=== PATIENT | female | born 2005 | race Hispanic/Latino ===

== ENCOUNTER 2023-10-13 06:59 | Inpatient (IN) | payer OTHER ==
[~2023-10-13] VITALS: Ht 165.1 cm; Wt 75.0 kg
[2023-10-13 08:05] LABS: BASO # 0.1 10^3/uL (0.0-0.2); BASO % 0.8 % (0.0-1.0); EOS # 0.3 10^3/uL (0.0-0.5); EOS % 5.6 % (0.0-3.0); HEMATOCRIT 39.4 % (36.0-47.0); HEMOGLOBIN 13.1 g/dl (12.0-15.5); LYMPH # 2.1 10^3/uL (1.5-5.0); LYMPH % 33.9 % (24.0-44.0); MEAN CORPUSCULAR HEMOGLOBIN 29.8 pg (27.0-33.0); MEAN CORPUSCULAR HGB CONC 33.2 g/dl (32.0-36.5); MEAN CORPUSCULAR VOLUME 89.7 fl (80.0-96.0); MONO # 0.3 10^3/uL (0.0-0.8); MONO % 4.8 % (2.0-8.0); NEUTROPHILS # 3.3 10^3/uL (1.5-8.5); NEUTROPHILS % 54.7 % (36.0-66.0); PLATELET COUNT, AUTOMATED 284 10^3/uL (150-450); RED BLOOD COUNT 4.39 10^6/uL (4.00-5.40); WHITE BLOOD COUNT 6.1 10^3/uL (4.0-10.0)
[2023-10-13 08:16] LABS: ETHYL ALCOHOL (ETHANOL) 0.004 % (0.000-0.010)
[2023-10-13 08:17] LABS: ALBUMIN 4.1 G/DL (3.2-5.2); ALKALINE PHOSPHATASE 101 U/L (46-116); ALT/SGPT 21 U/L (7.0-40); AST/SGOT 14 U/L (<34); BILIRUBIN,DIRECT 0.2 MG/DL (<0.4); BILIRUBIN,TOTAL 0.7 MG/DL (0.3-1.2); BLOOD UREA NITROGEN 8 MG/DL (9-23); CALCIUM LEVEL 8.8 MG/DL (8.5-10.1); CARBON DIOXIDE LEVEL 25 MMOL/L (20-31); CHLORIDE LEVEL 108 MMOL/L (98-107); CPK CREATINE PHOSPHOKINASE 71 U/L (34-145); CREATININE FOR GFR 0.54 MG/DL (0.55-1.30); GLUCOSE, FASTING 104 MG/DL (60-100); POTASSIUM SERUM 3.6 MMOL/L (3.5-5.1); SALICYLATE LEVEL < 3.0 MG/DL (<30); SODIUM LEVEL 142 MMOL/L (136-145); TOTAL PROTEIN 7.6 G/DL (5.7-8.2)
[2023-10-13 08:20] LABS: THYROID STIMULATING HORMONE 2.633 uIU/ML (0.48-4.17)
[2023-10-13 08:39] LABS: HCG, SERUM QUALITATIVE NEGATIVE (NEGATIVE)
[2023-10-13 08:42] LABS: AMPHETAMINES LEVEL URINE NEGATIVE (NEGATIVE); BARBITURATES URINE NEGATIVE (NEGATIVE)
[2023-10-13 08:43] LABS: BENZODIAZEPINES URINE NEGATIVE (NEGATIVE); CANNABINOIDS URINE NEGATIVE (NEGATIVE); COCAINE METABOLITE URINE NEGATIVE (NEGATIVE); METHADONE URINE NEGATIVE (NEGATIVE); OPIATES URINE NEGATIVE (NEGATIVE); PHENCYCLIDINE URINE NEGATIVE (NEGATIVE)
[2023-10-13] MEDS ORDERED: IBUPROFEN 400MG TAB PO PRN (14:20)
[2023-10-13] MEDS ORDERED: diphenhydrAMINE 25MG CAP PO PRN (14:20)
[2023-10-13] MEDS ORDERED: MOM 30ML SUSPENSION UDC PO PRN (14:20)
[2023-10-13] MEDS ORDERED: traZODone 50 MG TAB PO PRN (14:20)
[2023-10-13] MEDS ORDERED: MAALOX 30 ML SUSP *UDC PO PRN (14:20)
[2023-10-13] MEDS ORDERED: ACETAMINOPHEN TAB 650MG DOSE (2X325MG) PO PRN (14:20)
[2023-10-13] MEDS ORDERED: MED REC IN PROGRESS XX SCH (14:50)
[2023-10-13] MEDS ORDERED: FISH1CAP26 PO (15:12)
[2023-10-13] MEDS ORDERED: CALCTAB89 PO (15:12)
[2023-10-13] MEDS ORDERED: HOME MED LIST COMPLETE! XX SCH (15:20)
[2023-10-13 15:46] LABS: RSV AMPLIFICATION NEGATIVE (NEGATIVE)
[2023-10-13 16:45] VITALS: BP 125/79; TEMP 100; O2SAT 100
[2023-10-14 06:19] VITALS: BP 136/69; TEMP 98.8; O2SAT 98
[2023-10-14 16:31] VITALS: BP 128/60; TEMP 99.6; O2SAT 100
[2023-10-15 06:35] VITALS: BP 106/63; TEMP 98.5; O2SAT 98
[2023-10-15 19:15] VITALS: BP 125/72; TEMP 99.1; O2SAT 98
[2023-10-16 06:29] VITALS: BP 110/57; TEMP 97.7; O2SAT 97
[2023-10-16 18:14] VITALS: BP 143/75; TEMP 98.1; O2SAT 100
[2023-10-17 06:30] VITALS: BP 113/56; TEMP 98.1; O2SAT 99
== END 2023-10-17 12:50 | disposition home or self-care (01) | DRG 885 ==
LOC: EDSEX 06:59 → M ED 06:59 → EDBD 06:59 → M ED INP 14:20 → M PSY 16:24
PROVIDERS: ADMIT Student in an Organized Health Care Education/Training Program; ATTEND Student in an Organized Health Care Education/Training Program
DX: F32.89 Other specified depressive episodes (principal); R45.851 Suicidal ideations; F43.21 Adjustment disorder with depressed mood